=== PATIENT | male | born 1960 | race Caucasian/White ===

== ENCOUNTER 2021-10-22 23:09 | Inpatient (IN) | payer BC, OTHER, SELFPAY ==
--- NOTE | ~2021-10-22 | XR_ITS ---
XR chest 2V DATE: 10/22/2021 23:50 INDICATION: Chest pain TECHNIQUE: PA and lateral views COMPARISON: None FINDINGS: Mild cardiomegaly. No pulmonary infiltrate or consolidation, pleural effusion or pulmonary vascular congestion or pneumothorax is detected. Degenerative spurring of the thoracic spine. IMPRESSION: Mild cardiomegaly No active pulmonary disease Reviewed, dictated and finalized at location A.
--- NOTE | ~2021-10-22 | US_ITS ---
EXAMINATION: US art doppler w press LE BI DATE: 10/26/2021 09:51 INDICATION: Peripheral vascular disease TECHNIQUE: Segmental pressures and plethysmographic and Doppler waveforms of the brachial and lower e xtremity arteries were obtained. COMPARISON: None. FINDINGS: Right and left brachial artery pressures of 144 mm Hg and 132 mm Hg, respectively, are concordant (no rmal difference <= 30 mmHg). The right and left high-thigh pressure indices as well as pressures at t he above and [id number] popliteal arteries unable to be obtained due to patient body habitus. The right ankle-brachial index (YANA) is 1.22 (normal >= 0.9-1). The right great toe-brachial index (T BI) is 1.10 (normal >= 0.6-0.8). Arterial waveforms are triphasic at the right common femoral artery and biphasic at the more distal arteries in the right lower limb with brisk systolic upstrokes throug hout. The left YANA is 1.15. The left TBI is 1.10. Arterial waveforms are biphasic with brisk systolic upstr okes throughout the arteries of the left lower limb. IMPRESSION: 1. Normal YANA's and TBI's bilaterally. No significant arterial occlusive disease. Reviewed, dictated and finalized at location A. IMPRESSION: 1. Normal YANA's and TBI's bilaterally. No significant arterial occlusive diseas e.
--- NOTE | 2021-10-22 23:13 | ECG_ITS ---
Measurements Intervals [place] Rate: 75 P: 66 TN: 206 QRS: 43 QRSD: 106 T: 3 QT: 373 QTc: 419 Interpretive Statements SINUS RHYTHM WITH FIRST DEGREE AV BLOCK DELAYED PRECORDIAL R/S TRANSITION BORDERLINE ST-T WAVE ABNORMALITY- INFERIOR LEADS BASELINE ARTIFACT- II, III, AVF BORDERLINE ECG Electronically Signed On 10-23-2021 6:22:36 CDT by Geovani Lozada D.O.
--- NOTE | 2021-10-22 23:24 | ED.CHESTPAIN ---
HPI - Chest Pain General Chief Complaint: Chest Pain Stated Complaint: extreme chest pains Time Seen by Provider: 10/22/21 23:14 History of Present Illness HPI narrative: 61-year-old male with history of diabetes, hypertension high cholesterol presenting to the emergency department for evaluation of intense left-sided chest pain that occurred at approximately 1030. Patient states while he was at rest he had an intense left-sided chest pain that did radiate up into his jaw. Patient states he did feel flushed with his pain. Patient states since the pain began it has begun to improve. Patient states currently the tightness is down to a 3. Patient reports he has had no prior history of AL but did have a stress test approximately 10 years ago. Related Data Allergies Allergy/AdvReac Type Severity Reaction Status Date / Time poison geovani extract Allergy Severe Rash Verified 10/23/21 03:11 poison oak extract Allergy Severe Rash Verified 10/23/21 03:11 poison sumac extract Allergy Severe Rash Verified 10/23/21 03:11 tetracycline AdvReac Nausea and Verified 10/23/21 03:11 Vomiting NKDA Allergy Mild Unknown Uncoded 10/22/21 23:09 Review of Systems Review of Systems: CONSTITUTIONAL: Denies fever, chills, or sweats. EYES: Denies visual changes, redness, or discharge. ENT: Denies rhinorrhea, congestion, sore throat, or otalgia. CARDIOVASCULAR: See HPI RESPIRATORY: Denies cough or dyspnea. GASTROINTESTINAL: Denies abdominal pain, nausea, vomiting, or diarrhea. GENITOURINARY: Denies dysuria or hematuria. SKIN: Denies rash or itching. MUSCULOSKELETAL: Denies back pain, joint pain, or myalgia. NEUROLOGIC: Denies headache, numbness, or weakness. Exam Narrative: APPEARANCE: Well appearing, no pain, no distress, well-nourished. HEAD: normocephalic, atraumatic. EYES: PERRLA/EOMI, conjunctivae clear. NOSE: Normal no drainage NECK: Supple. No adenopathy, no masses. RESPIRATORY: Airway patent, respirations nonlabored. Clear to auscultation bilaterally, no rales, rhonchi, wheezing. CARDIOVASCULAR: Regular rate and rhythm without murmurs rubs or gallops. No reproducible chest wall tenderness to palpation. ABDOMINAL: Soft, nontender, nondistended, normal bowel sounds MUSCULOSKELETAL: Moves all extremities. Strength/ROM intact, No edema, No calf tenderness. NEURO: Alert. Cranial nerves II through XII intact. Grossly intact SKIN: Warm, dry. Normal Color Course Course Emergency Course: Patient's initial troponin was elevated at 0.044. EKG showed no evidence of acute STEMI. Case was discussed with cardiology, Dr. Swenson. Patient was treated with 1 dose of Lovenox. Case was discussed with the hospitalist and patient was admitted to IMU for concern for NSTEMI. Patient's repeat troponin was below detectable limits. Vital Signs Vital signs: Vital Signs Pulse Rate 67 10/22/21 23:25 Respiratory Rate 14 10/22/21 23:25 Blood Pressure 184/97 H 10/22/21 23:25 Pulse Oximetry 99 10/22/21 23:25 Pulse Rate 67 10/23/21 02:51 Respiratory Rate 16 10/23/21 02:51 Blood Pressure 132/62 10/23/21 02:51 Pulse Oximetry 97 10/23/21 02:51 MDM - Chest Pain Lab Data Attestation: I reviewed the patient's lab results. Result diagrams: 10/22/21 23:37 10/22/21 23:37 Labs: Lab Results 10/22/21 10/22/21 10/22/21 Range/Units 23:37 23:37 23:37 WBC 8.7 (4.5-10.0) K/mm3 RBC 5.43 (4.6-6.20) M/mm3 Hgb 15.5 (14.0-18.0) g/dL Hct 47.0 (42.0-52.0) % MCV 86.6 (80-100) fl MCH 28.5 (26-34) pg MCHC 33.0 (32-36) g/dl RDW 13.4 (11.5-14.5) % Plt Count 266 (150-375) k/mm3 MPV 8.8 (7.4-10.4) fl Immature Gran % (Auto) 0.3 (0-0.5) % Neut % (Auto) 36.9 L (45.5-73.1) % Lymph % (Auto) 50.6 H (18.3-44.2) % [place] % (Auto) 10.7 H (2.6-8.5) % Eos % (Auto) 1.2 (0-4.4) % Baso % (Auto) 0.3 (0.2-1.2) % Lymph # (Auto) 4.40 H (0.9-3.2) K/mm
[2021-10-22 23:25] VITALS: BP 184/97; PULSE 67; RESP 14; O2SAT 99
[2021-10-22 23:45] LABS: Basophils Percent Auto 0.3 % (0.2-1.2); Eosinophils Absolute Auto 0.1 K/mm3 (0-0.3); Eosinophils Percent Auto 1.2 % (0-4.4); Hemoglobin 15.5 g/dL (14.0-18.0); Immature Granulocyte Absolute 0.03 K/mm3 (0.00-0.031); Immature Granulocyte Percent A 0.3 % (0-0.5); Lymphocytes Percent Auto 50.6 % (18.3-44.2); Mean Corpuscular Hemoglobin 28.5 pg (26-34); Mean Corpuscular Volume 86.6 fl (80-100); Mean Platelet Volume 8.8 fl (7.4-10.4); Monocytes Absolute Auto 0.9 K/mm3 (0.1-0.6); Monocytes Percent Auto 10.7 % (2.6-8.5); Neutrophils Absolute Auto 3.2 K/mm3 (1.3-6.7); Neutrophils Percent Auto 36.9 % (45.5-73.1); Platelet Count Result 266 k/mm3 (150-375); Red Blood Count 5.43 M/mm3 (4.6-6.20); Red Cell Distribution Width 13.4 % (11.5-14.5); White Blood Count 8.7 K/mm3 (4.5-10.0)
[2021-10-22 23:56] LABS: Alanine Aminotransferase 31 U/L (6-50); Albumin Level 4.9 g/dL (3.5-5.1); Alkaline Phosphatase 86 U/L (38-126); Anion Gap 7 mmol/L (8-16); Aspartate Amino Transferase 31 U/L (17-59); Bilirubin,Total 0.3 mg/dL (0.2-1.3); Blood Urea Nitrogen 22 mg/dL (9-20); Calcium 9.3 mg/dL (8.4-10.2); Carbon Dioxide 28 mmol/L (22-30); Chloride 102 mmol/L (98-107); Estimated CRCL calculation 103 ml/min; Estimated Glomerular Filt Rate > 60; Glucose 138 mg/dL (65-110); Lipase 84 U/L (23-300); Potassium 3.8 mmol/L (3.4-5.0); Sodium 137 mmol/L (137-145)
[2021-10-22 23:59] LABS: INR 1.1; Prothrombin Time 13.7 Seconds (11.1-14.7)
[2021-10-23] VITALS (31 sets, daily range): BP systolic 112–151; BP diastolic 52–80; PULSE 48–84; RESP 9–20; TEMP 36.3–37.1; O2SAT 96–100; BMI 42.5
[2021-10-23] LABS: Partial Thromboplastin Time 30.1 SECONDS (22.3-36.8)
[2021-10-23] MEDS: NITROGLYCERIN SL 0.4 MG TABLET SUBLINGUAL (00:31)
[2021-10-23 00:32] LABS: Troponin I 0.044 ng/mL (0.000-0.034)
--- NOTE | 2021-10-23 00:36 | PC.NURSE ---
This RN about to administer 2nd dose nitro. Pts HR dropped to low 40s, pt alert and awake with c/o lightheadedness. Nitro held, EDP at bedside. Episode lasted approx 1 min. HR now in 60s
--- NOTE | 2021-10-23 01:08 | PM.IMHP ---
H&P: HPI History of Present Illness Date/Time: 10/23/21 01:08 Chief Complaint: Chest pain Narrative: This is a 61-year-old male with past medical history significant for hypertension, morbid obesity, patient presented by private yesenia sandoval to the emergency room after he had sudden onset of precordial chest pain with radiation bilaterally to shoulders and to the back pain lasted for roughly whole day on and off he had some lightheadedness with it no diaphoresis, no near syncope or syncope no cough, no cough no palpitations, no nausea, no vomiting, no abdominal pain, no diarrhea, no fevers, no rigors, no chills. Patient has been in his usual state of health up until this moment this happened while he was resting sitting down watching TV patient rates his pain to 1/10 in intensity at the time of my visit. Preliminary workup was significant for slight elevation troponin. Patient has been admitted for further evaluation management and treatment. Review of Systems Review of Systems: Chest pain Constitutional: Constitutional: Denies chills, Denies fatigue, Denies fever(s), Denies malaise and Denies night sweats Eyes: Eyes: Denies change in vision ENT: Denies dysphagia, Denies vertigo, Reports dizziness and Denies odynophagia Cardiovascular: Cardiovascular: Reports chest pain at rest, Denies pedal edema, Denies irregular heart rhythm, Denies leg edema, Reports palpitations and Reports dyspnea Respiratory: Respiratory: Denies chest congestion, Denies cough and Denies excessive phlegm production Gastrointestinal: Gastrointestinal: Denies abdominal pain, Denies dyspepsia, Denies heartburn, Denies diarrhea, Denies nausea and Denies vomiting Genitourinary: Genitourinary: Denies dysuria Musculoskeletal: Musculoskeletal: Denies back pain and Denies arthralgias Integumentary/Breasts: Skin/Breast: Denies rash Neurologic: Denies focal weakness and Denies Sensory deficit (Neuro) Psychiatric: Psychiatric: Reports no additional psychiatric complaints and Reports as per HPI Endocrine: Endocrine: Denies cold intolerance, Denies fatigue, Denies flushing, Denies heat intolerance, Denies polyphagia, Denies polydipsia and Denies palpitations Hematologic/Lymphatic: Hematologic/Lymphatic: Reports no additional hematologic/lymphatic complaints and Reports as per HPI Allergic/Immunologic: Allergic/Immunologic: Reports no additional allergic/immunologic complaints and Reports as per HPI [facility] Family History Family History (Updated 10/23/21 @ 03:12 by Sara Monzon RN) Sibling History of blood clots Colon cancer Grandparent Cerebrovascular accident Father Colon cancer Hypertension Mother Congestive heart failure Social History Social History Smoking status: Never smoker Second hand tobacco smoke exposure: Yes Drinks per week: 2 Substance use: never Spiritual care concerns: Yes (Hindu) Meds Home Medications and Allergies Home Medications Medication Instructions Recorded Confirmed Type Tumeric 1 cap PO DAILY 10/23/21 10/23/21 History acetaminophen 500 mg tablet 1,000 mg PO BID PRN Pain 10/23/21 10/23/21 History ascorbic acid (vitamin C) 250 mg 250 mg PO DAILY 10/23/21 10/23/21 History tablet aspirin 81 mg tablet,delayed 81 mg PO HS 10/23/21 10/23/21 History release cholecalciferol (vitamin D3) 25 25 mcg PO DAILY 10/23/21 10/23/21 History mcg (1,000 unit) tablet (Vitamin D3) coenzyme Q10 200 mg capsule (Co 200 mg PO BID 10/23/21 10/23/21 History Q-10) flaxseed oil 1,000 mg capsule 1,000 mg PO DAILY 10/23/21 10/23/21 History fluticasone propionate 50 1 spray intranasal HS 10/23/21 10/23/21 History mcg/actuation nasal spray,suspension (Flonase Allergy Relief) hydrochlorothiazide 25 mg tablet 25 mg PO DAILY 10/23/21 10/23/21 History krill oil 1,000 mg-om3 130 mg-dha 1 cap PO HS 10/23/21 10/23/21 History 40 mg-epa 80 [id number]-fel-astax cap (Krill Oil ([address])) lisinop
[2021-10-23] MEDS: MORPHINE SULFATE (*CRX) 4 MG/ML INJ IV PUSH (01:25)
[2021-10-23] MEDS: ENOXAPARIN 30 MG/0.3 ML SYRINGE SUB-Q ×2 (01:26→17:21)
[2021-10-23] MEDS: ENOXAPARIN 100 MG/ML SYRINGE SUB-Q ×2 (01:26→17:21)
[2021-10-23 02:01] LABS: SARS-CoV-2 RNA PCR Negative
[2021-10-23 03:04] LABS: Troponin I < 0.012 ng/mL (0.000-0.034)
[2021-10-23] MEDS: ACETAMINOPHEN 500 MG TABLET 1000 MG PO (04:30)
--- NOTE | 2021-10-23 04:43 | PC.NURSE ---
This patient, Quoc Galvez, was admitted to IMU Room 201-01. Patient/family oriented to hospital policies and general routines including ID bracelet, bed and alarms, visiting hours, pain management, procedures, bathroom and other care routines, personal items, smoking policy, room service/diet, and visiting hours. Patient/Family are encouraged to report perceived risks to care and to ask questions if they do not understand what they are told or what they should do.
[2021-10-23 06:05] LABS: Troponin I < 0.012 ng/mL (0.000-0.034)
[2021-10-23] MEDS: CHOLECALCIFEROL 1,000 UNITS TABLET 1000 UNITS PO (08:05)
[2021-10-23] MEDS: VITAMIN E 400 UNIT CAPSULE PO (08:05)
[2021-10-23] MEDS: hydroCHLOROthiazide 25 MG TABLET PO (08:05)
[2021-10-23] MEDS: carvediloL 6.25 MG TABLET PO ×2 (08:05→21:38)
[2021-10-23] MEDS: ASPIRIN 81 MG ENTERIC TABLET PO ×2 (08:05→21:38)
[2021-10-23] MEDS: ASCORBIC ACID 250 MG TABLET PO (08:06)
--- NOTE | 2021-10-23 10:04 | PCCCNOTE ---
On 10/23/21, the student, [Shira Hagan], provided care and completed [facility] documentation on this patient. I have reviewed the student's documentation and agree with the findings.
--- NOTE | 2021-10-23 10:39 | PM.IMPN ---
Progress Note: A&P Assessment and Plan (1) Acute non-ST elevation myocardial infarction (NSTEMI): Code(s): I21.4 - Non-ST elevation (NSTEMI) myocardial infarction Status: Acute Assessment and Plan: Admit to IMU Received Lovenox therapeutic dose in emergency room Cardiology consult Continue to trend troponin No EKG changes (2) Morbid obesity with BMI of 40.0-44.9, adult: Code(s): E66.01 - Morbid (severe) obesity due to excess calories; Z68.41 - Body mass index [BMI] 40.0-44.9, adult Status: Acute Assessment and Plan: Lifestyle and diet modifications (3) Hypertension: Code(s): I10 - Essential (primary) hypertension Status: Acute Assessment and Plan: Continue home meds Continue to monitor Plan # chest pain typical and atypical features. No prior history of coronary artery disease in the past. Stress test 10 years back was normal. EKG with ST-T changes in inferior leads 2 3 AVF otherwise no acute ischemic changes noted. No prior EKG to compare Initial troponin 0.044 however subsequent levels are negative. Lipase is normal His started on Lovenox, 1 dose given aspirin 325 mg given. In Continue on aspirin 81 mg daily Coreg and lisinopril. Continue rosuvastatin. Check lipid profile Check echo will get D-dimer. Cardiology been consulted from the ER will await their recommendations. Currently NPO. If no plans will let him eat # non ST-elevation [place] the initial troponin was mildly elevated at 0.044 the subsequent levels are normal # Morbid obesity # Hypertension # Type 2 diabetes on metformin at home. Place on SSI here check A1c # Hyperlipidemia check lipid profile. Continue rosuvastatin # EVELYNE on CPAP # DVT prophylaxis Lovenox # Code status full code Subjective Date/time seen: 10/23/21 10:39 Interval history: HPI:This is a 61-year-old male with past medical history significant for hypertension, morbid obesity, patient presented by private a lori to the emergency room after he had sudden onset of precordial chest pain with radiation bilaterally to shoulders and to the back pain lasted for roughly whole day on and off he had some lightheadedness with it no diaphoresis, no near syncope or syncope no cough, no cough no palpitations, no nausea, no vomiting, no abdominal pain, no diarrhea, no fevers, no rigors, no chills.? Patient has been in his usual state of health up until this moment this happened while he was resting sitting down watching TV patient rates his pain to 1/10 in intensity at the time of my visit.? Preliminary workup was significant for slight elevation troponin.? Patient has been admitted for further evaluation management and treatment. 10/23/2021 chart reviewed. Patient seen and examined. No further chest pain. No shortness of breath or cough. Review of Systems Review of Systems: All systems reviewed & are unremarkable except as noted in HPI and below Exam Narrative: GENERAL: The patient is well developed, not in acute distress HEENT: Nonicteric sclerae, PERRLA, EOMI. Oropharynx clear. Moist mucous membranes. Conjunctivae appear well perfused. CHEST: Chest wall is nontender. HEART: Regular rate and rhythm without murmur, rubs, or gallops LUNGS: Clear to auscultation bilaterally. no respiratory distress ABDOMEN: Soft, positive bowel sounds, non-tender, no organomegaly. SKIN: No rash, no excessive bruising, petechiae, or purpura. NEUROLOGIC: Cranial nerves II-XII intact, alert and oriented x 3, no gross motor deficits EXTREMITIES: no edema, cyanosis or clubbing Objective Data Vital Signs Vital Signs: Vital Signs - 24 hr 10/22/21 23:25 10/23/21 00:31 10/23/21 00:38 Temperature Pulse Rate 67 69 48 L Respiratory Rate 14 17 12 Blood Pressure 184/97 H 139/78 Pulse Oximetry 99 99 97 Oxygen Delivery 10/23/21 00:40 10/23/21 00:59 10/23/21 01:33 Temperature Pulse Rate 64 61 Respiratory Rate 12 14 Blood Pressure 121/63 112/52 L 1
[2021-10-23 11:09] LABS: Cholesterol 106 mg/dL (0-200); HDL Direct 32 mg/dL; Triglycerides 202 mg/dL (<150)
[2021-10-23 11:12] LABS: Hemoglobin A1C 6.9 % (<5.7)
[2021-10-23 11:20] LABS: LDL Cholesterol Direct 40 mg/dL
--- NOTE | 2021-10-23 12:40 | PM.CNCAR ---
Assessment and Plan Assessment and plan (1) Acute non-ST elevation myocardial infarction (NSTEMI): Code(s): I21.4 - Non-ST elevation (NSTEMI) myocardial infarction Status: Acute Assessment and Plan: Assessment NSTEMI HTN controlled Plan Heparin infusion or LMWH ASA Statin B-devonte [facility] on Sunday TTE History of Present Illness History of Present Illness Consult date/time: 10/23/21 12:40 chest pain Reason For Visit: NSTEMI Narrative: Patient presented with acute chest pain, left side, pressure like lasted for 45 min, radiates to jaw associated with sweating. Pain is not recurrent and no prior similar episodes. No precipitating or relieving factors. Review of Systems Review of Systems: All systems reviewed & are unremarkable except as noted in HPI and below PMFSH Family History Family History (Updated 10/23/21 @ 03:12 by Sara Monzon RN) Sibling History of blood clots Colon cancer Grandparent Cerebrovascular accident Father Colon cancer Hypertension Mother Congestive heart failure Social History Social History Smoking status: Never smoker Second hand tobacco smoke exposure: Yes Drinks per week: 2 Substance use: never Spiritual care concerns: Yes (Orthodox) Meds Home Medications and Allergies Home Medications Medication Instructions Recorded Confirmed Type Tumeric 1 cap PO DAILY 10/23/21 10/23/21 History acetaminophen 500 mg tablet 1,000 mg PO BID PRN Pain 10/23/21 10/23/21 History ascorbic acid (vitamin C) 250 mg 250 mg PO DAILY 10/23/21 10/23/21 History tablet aspirin 81 mg tablet,delayed 81 mg PO HS 10/23/21 10/23/21 History release cholecalciferol (vitamin D3) 25 25 mcg PO DAILY 10/23/21 10/23/21 History mcg (1,000 unit) tablet (Vitamin D3) coenzyme Q10 200 mg capsule (Co 200 mg PO BID 10/23/21 10/23/21 History Q-10) flaxseed oil 1,000 mg capsule 1,000 mg PO DAILY 10/23/21 10/23/21 History fluticasone propionate 50 1 spray intranasal HS 10/23/21 10/23/21 History mcg/actuation nasal spray,suspension (Flonase Allergy Relief) hydrochlorothiazide 25 mg tablet 25 mg PO DAILY 10/23/21 10/23/21 History krill oil 1,000 mg-om3 130 mg-dha 1 cap PO HS 10/23/21 10/23/21 History 40 mg-epa 80 ct-ht6-hoh-astax cap (Krill Oil ([place] [address] and 6)) lisinopril 10 mg tablet 10 mg PO HS 10/23/21 10/23/21 History loratadine 10 mg tablet 10 mg PO HS 10/23/21 10/23/21 History metformin 500 mg tablet 500 mg PO HS 10/23/21 10/23/21 History hnfepxwn-wne-mqsvr 120 mcg-lutein 1 tablet PO QACLUNCH 10/23/21 10/23/21 History 150 mcg-herb 50 mg chewable tablet (Alive Men's 50 Plus Multivitamin) naproxen 250 mg tablet 250 mg PO BID PRN Pain 10/23/21 10/23/21 History rosuvastatin 40 mg tablet 40 mg PO HS 10/23/21 10/23/21 History vitamin A 2,400 mcg capsule 2,400 mcg PO DAILY 10/23/21 10/23/21 History vitamin E 600 unit capsule 600 unit PO DAILY 10/23/21 10/23/21 History Allergies Allergy/AdvReac Type Severity Reaction Status Date / Time poison geovani extract Allergy Severe Rash Verified 10/23/21 03:11 poison oak extract Allergy Severe Rash Verified 10/23/21 03:11 poison sumac extract Allergy Severe Rash Verified 10/23/21 03:11 No Known Drug Allergies Allergy Verified 10/23/21 10:50 tetracycline AdvReac Nausea and Verified 10/23/21 03:11 Vomiting Vital Signs Vital Signs - 24 hr 10/22/21 23:25 10/23/21 00:31 10/23/21 00:38 Temperature Pulse Rate 67 69 48 L Respiratory Rate 14 17 12 Blood Pressure 184/97 H 139/78 Pulse Oximetry 99 99 97 Oxygen Delivery 10/23/21 00:40 10/23/21 00:59 10/23/21 01:33 Temperature Pulse Rate 64 61 Respiratory Rate 12 14 Blood Pressure 121/63 112/52 L 129/68 Pulse Oximetry 98 100 Oxygen Delivery 10/23/21 01:06 10/23/21 01:15 10/23/21 01:16 Temperature Pulse Rate 60 66 59 L Respiratory Rate 9 L 14 9 L Blood Pressure 117/65 Pulse Oximetry 98 100 100 Oxyg
[2021-10-23 13:07] LABS: D Dimer < 0.27 ug/mL (<0.48)
[2021-10-23 19:08] LABS: Glucose Point of Care 150 mg/dl (65-105)
[2021-10-23 20:55] LABS: Glucose Point of Care 206 mg/dl (65-105)
[2021-10-23] MEDS: FLUTICASONE PROPIONATE 0.05% NA SPR 16 GM BTL (*BKC) 1 SPRAY NASAL (21:38)
[2021-10-23] MEDS: lisinopriL 10 MG TABLET PO (21:38)
[2021-10-23] MEDS: LORATADINE 10 MG TABLET PO (21:38)
[2021-10-23] MEDS: OMEGA 3 POLYUNSAT FATTY ACIDS 1 GM CAP PO (21:38)
[2021-10-23] MEDS: ROSUVASTATIN 10 MG TABLET 40 MG PO (21:39)
[2021-10-24] VITALS (19 sets, daily range): BP systolic 125–145; BP diastolic 60–74; PULSE 51–106; RESP 16–20; TEMP 36.2–36.8; O2SAT 96–99
--- NOTE | 2021-10-24 | ECHO_ITS ---
Patient Info Name: Quoc Galvez Age: 61 years : 1960 Gender: Male Ht: 70 in Wt: 296 lbs BSA: 2.64 m2 HR: 52 bpm BP: 126 / 63 mmHg Exam Date: 10/24/2021 8:41 AM Exam Location: [facility] Patient Status: Inpatient Admit Date: 10/23/2021 Staff Ordering Physician: Steve Johnston MD Director Of Career Resources: Luciano Millard, TERELL, RT Attending Provider: Steve Johnston MD Exam Type: CA echo doppler color flow Study Info Indications R07.9 - Chest pain, unspecified Complete two-dimensional, color flow and Doppler transthoracic echocardiogram is performed. Strain analysis performed. Summary 1. Complete two-dimensional, color flow and Doppler transthoracic echocardiogram is performed. 2. Left ventricular chamber dimension is normal. 3. Left ventricular systolic function is normal, estimated at 65-70%. 4. There is no increased left ventricular wall thickness. 5. The left ventricular diastolic function is normal. 6. Right ventricular chamber dimension is normal. 7. Right ventricular systolic function is normal. 8. Left atrial chamber dimension is normal. 9. Right atrial chamber dimension is normal. Left Ventricle Left ventricular chamber dimension is normal. Left ventricular systolic function is normal, estimated at 65-70%. There is no increased left ventricular wall thickness. Left ventricular septal wall motion is normal. The left ventricular diastolic function is normal. Right Ventricle Right ventricular chamber dimension is normal. Right ventricular systolic function is normal. Left Atria Left atrial chamber dimension is normal. Right Atria Right atrial chamber dimension is normal. Aortic Valve The aortic valve is trileaflet. There is no aortic valve sclerosis. There is no aortic valve stenosis. There is no aortic valve regurgitation. Pulmonic Valve Pulmonary valve is not well visualized. Mitral Valve The mitral valve has normal leaflets. There is no mitral valve stenosis. There is no mitral valve regurgitation. Tricuspid Valve The tricuspid valve leaflets are normal. There is no significant tricuspid valve stenosis. There is no tricuspid valve regurgitation. Pericardium/Pleural The pericardium appears normal. There is no pericardial effusion. Aorta The aortic root size at the sinus of Valsalva is normal. The prox ascending aorta size is normal. Left Ventricular Outflow Tract Name Value Normal LVOT 2D LVOT Diameter 2.1 cm LVOT Doppler LVOT Peak Gradient 3 mmHg LVOT Mean Gradient 2 mmHg LVOT VTI 21 cm LVOT VTI/AV VTI Ratio 0.8 LVOT Stroke Volume 72 ml LVOT CO 3.4 l/min LVOT CI 1.3 l/min/m2 Mitral Valve Name Value Normal MV Doppler
--- NOTE | 2021-10-24 | ECHO_ITS ---
Patient Info Name: Quoc Galvez Age: 61 years : 1960 Gender: Male Ht: 70 in Wt: 296 lbs BSA: 2.64 m2 HR: 52 bpm BP: 126 / 63 mmHg Exam Date: 10/24/2021 8:41 AM Exam Location: [facility] Patient Status: Inpatient Admit Date: 10/23/2021 Staff Ordering Physician: Steve Johnston MD Material Inspector: Luciano Millard, TERELL, RT Attending Provider: Steve Johnston MD Exam Type: CA echo doppler color flow Study Info Indications R07.9 - Chest pain, unspecified Complete two-dimensional, color flow and Doppler transthoracic echocardiogram is performed. Strain analysis performed. Summary 1. Complete two-dimensional, color flow and Doppler transthoracic echocardiogram is performed. 2. Left ventricular chamber dimension is normal. 3. Left ventricular systolic function is normal, estimated at 65-70%. 4. There is no increased left ventricular wall thickness. 5. The left ventricular diastolic function is normal. 6. Right ventricular chamber dimension is normal. 7. Right ventricular systolic function is normal. 8. Left atrial chamber dimension is normal. 9. Right atrial chamber dimension is normal. Left Ventricle Left ventricular chamber dimension is normal. Left ventricular systolic function is normal, estimated at 65-70%. There is no increased left ventricular wall thickness. Left ventricular septal wall motion is normal. The left ventricular diastolic function is normal. Right Ventricle Right ventricular chamber dimension is normal. Right ventricular systolic function is normal. Left Atria Left atrial chamber dimension is normal. Right Atria Right atrial chamber dimension is normal. Aortic Valve The aortic valve is trileaflet. There is no aortic valve sclerosis. There is no aortic valve stenosis. There is no aortic valve regurgitation. Pulmonic Valve Pulmonary valve is not well visualized. Mitral Valve The mitral valve has normal leaflets. There is no mitral valve stenosis. There is no mitral valve regurgitation. Tricuspid Valve The tricuspid valve leaflets are normal. There is no significant tricuspid valve stenosis. There is no tricuspid valve regurgitation. Pericardium/Pleural The pericardium appears normal. There is no pericardial effusion. Aorta The aortic root size at the sinus of Valsalva is normal. The prox ascending aorta size is normal. Left Ventricular Outflow Tract Name Value Normal LVOT 2D LVOT Diameter 2.1 cm LVOT Doppler LVOT Peak Gradient 3 mmHg LVOT Mean Gradient 2 mmHg LVOT VTI 21 cm LVOT VTI/AV VTI Ratio 0.8 LVOT Stroke Volume 72 ml LVOT CO 3.4 l/min LVOT CI 1.3 l/min/m2 Mitral Valve Name Value Normal MV Doppler
[2021-10-24] MEDS: ENOXAPARIN 30 MG/0.3 ML SYRINGE SUB-Q ×2 (05:45→16:26)
[2021-10-24] MEDS: ENOXAPARIN 100 MG/ML SYRINGE SUB-Q ×2 (05:45→16:26)
[2021-10-24] MEDS: ACETAMINOPHEN 500 MG TABLET 1000 MG PO ×3 (05:50→21:12)
[2021-10-24 08:24] LABS: Glucose Point of Care 174 mg/dl (65-105)
[2021-10-24] MEDS: CHOLECALCIFEROL 1,000 UNITS TABLET 1000 UNITS PO (09:07)
[2021-10-24] MEDS: carvediloL 6.25 MG TABLET PO ×2 (09:07→21:11)
[2021-10-24] MEDS: VITAMIN E 400 UNIT CAPSULE PO (09:07)
[2021-10-24] MEDS: ASPIRIN 81 MG ENTERIC TABLET PO ×2 (09:07→21:12)
[2021-10-24] MEDS: hydroCHLOROthiazide 25 MG TABLET PO (09:08)
[2021-10-24] MEDS: ASCORBIC ACID 250 MG TABLET PO (09:08)
[2021-10-24 12:35] LABS: Glucose Point of Care 204 mg/dl (65-105)
[2021-10-24] MEDS: INSULIN ASPART (*BKC) 100 UNITS/ML SUB-Q (12:38)
[2021-10-24] MEDS: MULTIVITAMINS /C LUTEIN (CENTRUM SILVER) TABLET *BKC 1 TAB PO (12:39)
--- NOTE | 2021-10-24 12:49 | PM.IMPN ---
Progress Note: A&P Assessment and Plan (1) Acute non-ST elevation myocardial infarction (NSTEMI): Code(s): I21.4 - Non-ST elevation (NSTEMI) myocardial infarction Status: Acute (2) Morbid obesity with BMI of 40.0-44.9, adult: Code(s): E66.01 - Morbid (severe) obesity due to excess calories; Z68.41 - Body mass index [BMI] 40.0-44.9, adult Status: Acute (3) Hypertension: Code(s): I10 - Essential (primary) hypertension Status: Acute Plan # chest pain typical and atypical features. No prior history of coronary artery disease in the past. Stress test 10 years back was normal. EKG with ST-T changes in inferior leads 2 3 AVF otherwise no acute ischemic changes noted. No prior EKG to compare Initial troponin 0.044 however subsequent levels are negative. Lipase is normal His started on Lovenox, 1 dose given aspirin 325 mg given. In Continue on aspirin 81 mg daily Coreg and lisinopril. Continue rosuvastatin. Check lipid profile Echo done which is pending. D-dimer came back negative. Cardiology consulted and plan for cardiac catheterization in the morning # non ST-elevation [place] the initial troponin was mildly elevated at 0.044 the subsequent levels are normal # Morbid obesity # Hypertension # Type 2 diabetes on metformin at home. Place on SSI here A1c at 6.9 # Hyperlipidemia lipid profile with LDL 40. Continue rosuvastatin # EVELYNE on CPAP # DVT prophylaxis Lovenox # Code status full code Subjective Date/time seen: 10/24/21 12:49 Interval history: HPI:This is a 61-year-old male with past medical history significant for hypertension, morbid obesity, patient presented by private a vagal to the emergency room after he had sudden onset of precordial chest pain with radiation bilaterally to shoulders and to the back pain lasted for roughly whole day on and off he had some lightheadedness with it no diaphoresis, no near syncope or syncope no cough, no cough no palpitations, no nausea, no vomiting, no abdominal pain, no diarrhea, no fevers, no rigors, no chills.? Patient has been in his usual state of health up until this moment this happened while he was resting sitting down watching TV patient rates his pain to 1/10 in intensity at the time of my visit.? Preliminary workup was significant for slight elevation troponin.? Patient has been admitted for further evaluation management and treatment. 10/23/2021 chart reviewed. Patient seen and examined. No further chest pain. No shortness of breath or cough. 10/24/2021. Intermittent chest pain short lived. No shortness of breath or cough. Any leg swelling Review of Systems Review of Systems: All systems reviewed & are unremarkable except as noted in HPI and below Exam Narrative: GENERAL: The patient is well developed, not in acute distress HEENT: Nonicteric sclerae, PERRLA, EOMI. Oropharynx clear. Moist mucous membranes. Conjunctivae appear well perfused. CHEST: Chest wall is nontender. HEART: Regular rate and rhythm without murmur, rubs, or gallops LUNGS: Clear to auscultation bilaterally. no respiratory distress ABDOMEN: Soft, positive bowel sounds, non-tender, no organomegaly. SKIN: No rash, no excessive bruising, petechiae, or purpura. NEUROLOGIC: Cranial nerves II-XII intact, alert and oriented x 3, no gross motor deficits EXTREMITIES: no edema, cyanosis or clubbing Objective Data Vital Signs Vital Signs: Vital Signs - 24 hr 10/23/21 14:00 10/23/21 16:00 10/23/21 16:00 Temperature 97.3 F L Pulse Rate 70 70 67 Respiratory Rate 18 16 Blood Pressure 139/76 Pulse Oximetry 98 98 Oxygen Delivery Room Air Fraction of Inspired Oxygen 10/23/21 16:00 10/23/21 18:00 10/23/21 20:00 Temperature 98.5 F Pulse Rate 84 68 72 Respiratory Rate 16 Blood Pressure 134/75 Pulse Oximetry 97 Oxygen Delivery Fraction of Inspired Oxygen 10/23/21 21:38 10/23/21 23:02 10/23/21 23:02 Temperature Pulse Rate 70 72 Respi
[2021-10-24 16:02] LABS: Glucose Point of Care 128 mg/dl (65-105)
--- NOTE | 2021-10-24 16:18 | PM.PNCARD ---
Progress Note: A&P Assessment and Plan (1) Acute non-ST elevation myocardial infarction (NSTEMI): Code(s): I21.4 - Non-ST elevation (NSTEMI) myocardial infarction Status: Acute Plan NSTEMI HTN Plan LMWH (hold in AM) [facility] ASA Statin B-devonte and ACEI Subjective Date/time seen: 10/24/21 16:18 no chest pain today Tele: SR Review of Systems Review of Systems: All systems reviewed & are unremarkable except as noted in HPI and below Exam Const: General: comfortable and no acute distress Other: Able to lie flat Neck: Neck: supple and no JVD Carotids: no bruits Resp: Auscultation: clear to auscultation bilaterally and lung sounds not diminished Other: No chest wall tenderness Cardio: Rate: regular rate Rhythm: regular rhythm Heart sounds: no gallops, no murmurs and no rubs GI: GI Palp: Yes Soft to palpation and No Tenderness to palpation present (GI) Auscultation: normal bowel sounds Extrem: General: no edema Other: Normal capillary refills Intact distal pulses. Objective Data Vital Signs Vital Signs: Vital Signs - 24 hr 10/23/21 18:00 10/23/21 20:00 10/23/21 21:38 Temperature 36.9 C Pulse Rate 68 72 70 Respiratory Rate 16 Blood Pressure 134/75 Pulse Oximetry 97 Oxygen Delivery Fraction of Inspired Oxygen 10/23/21 23:02 10/23/21 23:02 10/23/21 20:00 Temperature Pulse Rate 72 74 Respiratory Rate 16 Blood Pressure Pulse Oximetry 97 96 Oxygen Delivery Autopap CPAP Fraction of Inspired Oxygen 21 10/23/21 20:00 10/23/21 22:00 10/23/21 23:59 Temperature 37.1 C Pulse Rate 61 66 Respiratory Rate 20 Blood Pressure 145/67 H Pulse Oximetry 97 98 Oxygen Delivery Room Air Fraction of Inspired Oxygen 10/24/21 00:00 10/24/21 00:00 10/24/21 04:00 Temperature 36.4 C L Pulse Rate 59 L 68 Respiratory Rate 16 Blood Pressure 126/63 Pulse Oximetry 98 98 Oxygen Delivery Room Air Fraction of Inspired Oxygen 10/24/21 03:20 10/24/21 02:00 10/24/21 04:00 Temperature Pulse Rate 77 55 L 54 L Respiratory Rate 16 Blood Pressure Pulse Oximetry 96 Oxygen Delivery Autopap Fraction of Inspired Oxygen 10/24/21 04:00 10/24/21 06:00 10/24/21 08:04 Temperature Pulse Rate 53 L 72 Respiratory Rate 18 Blood Pressure Pulse Oximetry 98 97 Oxygen Delivery Room Air Autopap Fraction of Inspired Oxygen 10/24/21 08:05 10/24/21 08:00 10/24/21 08:00 Temperature 36.2 C L Pulse Rate 106 H Respiratory Rate 20 Blood Pressure 129/66 Pulse Oximetry 97 98 Oxygen Delivery CPAP Room Air Fraction of Inspired Oxygen 21 10/24/21 09:07 10/24/21 08:00 10/24/21 10:00 Temperature Pulse Rate 60 51 L 65 Respiratory Rate Blood Pressure Pulse Oximetry Oxygen Delivery Fraction of Inspired Oxygen 10/24/21 11:51 10/24/21 12:00 10/24/21 12:00 Temperature 36.8 C Pulse Rate 65 65 70 Respiratory Rate 18 18 Blood Pressure 125/66 Pulse Oximetry 97 97 Oxygen Delivery CPAP Fraction of Inspired Oxygen 21 10/24/21 14:00 10/24/21 16:00 Temperature 36.3 C L Pulse Rate 61 62 Respiratory Rate 18 Blood Pressure 133/74 Pulse Oximetry 98 Oxygen Delivery Fraction of Inspired Oxygen Intake/Output Intake/Output: Intake & Output 10/21/21 10/22/21 10/23/21 10/24/21 23:59 23:59 23:59 23:59 Intake Total 490 1190 Output Total 650 1400 Balance -160 -210 Meds/Results Medications: Active Medications Generic Name Dose Route Start Last Admin Trade Name Freq PRN Reason Stop Dose Admin Acetaminophen 1,000 mg 10/23/21 04:16 10/24/21 12:39 Acetaminophen 500 Mg Tablet PO 1,000 mg Q6H PRN Administration Mild Pain (1-3) or Fever Ascorbic Acid 250 mg 10/23/21 09:00 10/24/21 09:08 Ascorbic Acid 250 Mg Tablet PO 250 mg DAILY COLTEN Administration Aspirin 81 mg 10/23/21 21:00 10/23/21 21:38 Aspirin 81 Mg Enteric
[2021-10-24] MEDS: WATER FOR IRRIGATION, STERILE 1,000 ML BOTTLE 1000 ML (16:19)
[2021-10-24] MEDS: FLUTICASONE PROPIONATE 0.05% NA SPR 16 GM BTL (*BKC) 1 SPRAY NASAL (21:09)
[2021-10-24] MEDS: ROSUVASTATIN 10 MG TABLET 40 MG PO (21:10)
[2021-10-24] MEDS: OMEGA 3 POLYUNSAT FATTY ACIDS 1 GM CAP PO (21:11)
[2021-10-24] MEDS: lisinopriL 10 MG TABLET PO (21:12)
[2021-10-24] MEDS: LORATADINE 10 MG TABLET PO (21:12)
[2021-10-24 22:44] LABS: Glucose Point of Care 176 mg/dl (65-105)
[2021-10-25] VITALS (26 sets, daily range): BP systolic 112–152; BP diastolic 53–76; PULSE 51–73; RESP 12–18; TEMP 36.3–36.9; O2SAT 94–99
[2021-10-25 05:20] LABS: Basophils Percent Auto 0.4 % (0.2-1.2); Eosinophils Absolute Auto 0.1 K/mm3 (0-0.3); Eosinophils Percent Auto 1.4 % (0-4.4); Hematocrit 43.5 % (42.0-52.0); Hemoglobin 14.9 g/dL (14.0-18.0); Immature Granulocyte Absolute 0.06 K/mm3 (0.00-0.031); Immature Granulocyte Percent A 0.7 % (0-0.5); Lymphocytes Absolute Auto 3.82 K/mm3 (0.9-3.2); Mean Corpuscular HGB Conc 34.3 g/dl (32-36); Mean Corpuscular Hemoglobin 28.9 pg (26-34); Mean Corpuscular Volume 84.5 fl (80-100); Mean Platelet Volume 9.2 fl (7.4-10.4); Monocytes Absolute Auto 0.8 K/mm3 (0.1-0.6); Neutrophils Absolute Auto 3.3 K/mm3 (1.3-6.7); Neutrophils Percent Auto 40.5 % (45.5-73.1); Platelet Count Result 266 k/mm3 (150-375); Red Blood Count 5.15 M/mm3 (4.6-6.20); Red Cell Distribution Width 13.2 % (11.5-14.5); White Blood Count 8.1 K/mm3 (4.5-10.0)
[2021-10-25 05:33] LABS: Anion Gap 9 mmol/L (8-16); Blood Urea Nitrogen 23 mg/dL (9-20); Calcium 9.1 mg/dL (8.4-10.2); Carbon Dioxide 25 mmol/L (22-30); Chloride 100 mmol/L (98-107); Estimated CRCL calculation 104 ml/min; Estimated Glomerular Filt Rate > 60; Glucose 145 mg/dL (65-110); Magnesium 2.2 mg/dL (1.6-2.3); Potassium 3.5 mmol/L (3.4-5.0); Sodium 134 mmol/L (137-145)
[2021-10-25] MEDS: VITAMIN E 400 UNIT CAPSULE PO (08:24)
[2021-10-25] MEDS: CHOLECALCIFEROL 1,000 UNITS TABLET 1000 UNITS PO (08:24)
[2021-10-25] MEDS: ASCORBIC ACID 250 MG TABLET PO (08:24)
[2021-10-25] MEDS: hydroCHLOROthiazide 25 MG TABLET PO (08:24)
[2021-10-25] MEDS: carvediloL 6.25 MG TABLET PO ×2 (08:24→21:36)
--- NOTE | 2021-10-25 09:38 | WPDMODSED ---
Moderate Sedation Note-Pt Data Patient Data Diagnosis: Chest pain Present Complaint: No current complaints Procedure to be performed/Plan: Left heart catheterization Allergies Allergy/AdvReac Type Severity Reaction Status Date / Time poison geovani extract Allergy Severe Rash Verified 10/23/21 03:11 poison oak extract Allergy Severe Rash Verified 10/23/21 03:11 poison sumac extract Allergy Severe Rash Verified 10/23/21 03:11 No Known Drug Allergies Allergy Verified 10/23/21 10:50 tetracycline AdvReac Nausea and Verified 10/23/21 03:11 Vomiting Home Medications Medication Instructions Recorded Confirmed Type Tumeric 1 cap PO DAILY 10/23/21 10/23/21 History acetaminophen 500 mg tablet 1,000 mg PO BID PRN Pain 10/23/21 10/23/21 History ascorbic acid (vitamin C) 250 mg 250 mg PO DAILY 10/23/21 10/23/21 History tablet aspirin 81 mg tablet,delayed 81 mg PO HS 10/23/21 10/23/21 History release cholecalciferol (vitamin D3) 25 25 mcg PO DAILY 10/23/21 10/23/21 History mcg (1,000 unit) tablet (Vitamin D3) coenzyme Q10 200 mg capsule (Co 200 mg PO BID 10/23/21 10/23/21 History Q-10) flaxseed oil 1,000 mg capsule 1,000 mg PO DAILY 10/23/21 10/23/21 History fluticasone propionate 50 1 spray intranasal HS 10/23/21 10/23/21 History mcg/actuation nasal spray,suspension (Flonase Allergy Relief) hydrochlorothiazide 25 mg tablet 25 mg PO DAILY 10/23/21 10/23/21 History krill oil 1,000 mg-om3 130 mg-dha 1 cap PO 10/23/21 10/23/21 History 40 mg-epa 80 [id number]-[id number]-hjf-astax cap (Krill Oil (Fields 3 and 6)) lisinopril 10 mg tablet 10 mg PO 10/23/21 10/23/21 History loratadine 10 mg tablet 10 mg PO 10/23/21 10/23/21 History metformin 500 mg tablet 500 mg PO HS 10/23/21 10/23/21 History gqpzhxtd-jum-ejeed 120 mcg-lutein 1 tablet PO QACLUNCH 10/23/21 10/23/21 History 150 mcg-herb 50 mg chewable tablet (Alive Men's 50 Plus Multivitamin) naproxen 250 mg tablet 250 mg PO BID PRN Pain 10/23/21 10/23/21 History rosuvastatin 40 mg tablet 40 mg PO HS 10/23/21 10/23/21 History vitamin A 2,400 mcg capsule 2,400 mcg PO DAILY 10/23/21 10/23/21 History vitamin E 600 unit capsule 600 unit PO DAILY 10/23/21 10/23/21 History Current Medications: Active Medications Acetaminophen (Acetaminophen 500 Mg Tablet) 1,000 mg PO Q6H PRN PRN Reason: Mild Pain (1-3) or Fever Last Admin: 10/24/21 21:12 Dose: 1,000 mg Ascorbic Acid (Ascorbic Acid 250 Mg Tablet) 250 mg PO DAILY [facility] Last Admin: 10/25/21 08:24 Dose: 250 mg Aspirin (Aspirin 81 Mg Enteric Tablet) 81 mg PO [facility] Last Admin: 10/24/21 21:12 Dose: 81 mg Carvedilol (Carvedilol 6.25 Mg Tablet) 6.25 mg PO Q12HR [facility] Last Admin: 10/25/21 08:24 Dose: 6.25 mg Dextrose (Dextrose 50% 25 Gm/50 Ml Syringe) 12.5 gm IV PUSH PRN PRN; Protocol PRN Reason: Hypoglycemia Enoxaparin Sodium (Enoxaparin 100 Mg/Ml Syringe) 100 mg SUB-Q Q12H [facility] Last Admin: 10/25/21 05:13 Dose: Not Given Enoxaparin Sodium (Enoxaparin 30 Mg/0.3 Ml Syringe) 30 mg SUB-Q Q12H [facility] Last Admin: 10/25/21 05:13 Dose: Not Given Fish Oil (Fields 3 Polyunsat Fatty Acids 1 Gm Cap) 1 gm PO [facility] Last Admin: 10/24/21 21:11 Dose: 1 gm Fluticasone Propionate (Fluticasone Propionate 0.05% Na Spr 16 Gm Btl (*Bkc)) 1 spray NASAL [facility] Last Admin: 10/24/21 21:09 Dose: 1 spray Glucagon (Glucagon For Inj 1 Mg Vial) 1 mg IM PRN PRN; Protocol PRN Reason: Hypoglycemia Glucose (Glucose Oral Gel 15 Gm Of Glucse In 37.5 Gm Tube) 15 gm PO PRN PRN; Protocol PRN Reason: Hypoglycemia Hydrochlorothiazide (Hydrochlorothiazide 25 Mg Tablet) 25 mg PO DAILY COLTEN Last Admin: 10/25/21 08:24 Dose: 25 mg Dextrose (Dextrose 5% 1,000 Ml) 1,000 mls @ 100 mls/hr IVPB PRN PRN; Protocol PRN Reason: Hypoglycemia Insulin Aspart (Insulin Aspart (*Bkc) 100 Units/Ml) 2 - 5 units SUB-Q TIDWM COLTEN; Protocol Last Admin: 10/25/21 08:19 Dose: Not Given Lisinopril (Lisinopril 10 Mg Tablet) 10 mg
[2021-10-25 09:48] LABS: Glucose Point of Care 169 mg/dl (65-105)
--- NOTE | 2021-10-25 10:48 | WPDCARDPROC ---
Cardiac Cath Procedure Note Date of procedure:: 10/25/21 Performing physician:: Cody Healy MD Indication:: chest pain/abnormal troponin Brief clinical history:: this is a 61-year-old patient undergoing angiography after he was admitted over the weekend with an episode of chest pain that occurred as an outpatient that was associated with a minimal rise in his troponin on the 1st sample the 2nd and 3rd samples however were normal. No history of exertional angina. Procedure Procedure performed:: Left ventriculogram coronary angiogram Angio-Seal to right femoral artery Sedation/Medication given:: fentanyl 25 mg Versed 2 mg case start time 10:27 a.m. case end time 10:46 a.m. Access site:: right femoral artery Estimated blood loss:: 25 cc Procedure note:: patient was brought to the cardiac catheterization lab in the postabsorptive state where the right femoral triangle was prepared and draped in the normal fashion. Anesthesia was given with 1% lidocaine infiltrated locally. Using the modified Seldinger technique the right common femoral artery was punctured and a 5 [place] vascular sheath was then placed. After this left heart catheterization was carried out. I used a 5 [place] angled pigtail catheter to perform a left ventriculogram in the KRISHNA projection. I then used a standard 5 [place] FL4 catheter to engage and inject the left coronary artery and a 5 [place] JR4 catheter to engage and inject the right coronary artery. The cineangiograms were then reviewed and the case was terminated. An angiogram was done of the femoral artery through the sheath after which an Angio-Seal device was deployed with a good hemostatic result. The patient tolerated the procedure well there were no apparent complications. He left the cardiac catheterization lab with no evidence of groin hematoma. Findings:: Hemodynamics: Central aortic pressure is 1 20/73 left ventricle 122/3 and diastolic of 17 there is no gradient on pullback across the aortic valve. Left ventricle: The LV is normal in size all segments contract adequately the global ejection fraction is visually estimated to be 50%. There were no regional wall motion abnormalities identified. The left main coronary artery is nicely patent the left anterior descending is a moderate caliber artery extending down just around the apex. The LAD and its branches are smooth and angiographically normal in appearance circumflex is medium in caliber giving rise to the marginal branches. The circumflex system is smooth and angiographically normal in appearance the right coronary artery is large in caliber and dominant to the posterior circulation. The right coronary artery system is also smooth and angiographically normal in appearance. Conclusion:: 1. Right coronary dominant circulation with no angiographic abnormalities 2. preserved left ventricular systolic function 3. patient has atypical chest pain syndrome not mediated by myocardial ischemia based on these findings Cody Healy MD [facility]
[2021-10-25] MEDS: SODIUM CHLORIDE 0.9% IV 1,000 ML 125 ML IV CONT (11:54)
[2021-10-25 12:20] LABS: Glucose Point of Care 155 mg/dl (65-105)
[2021-10-25] MEDS: ACETAMINOPHEN 500 MG TABLET 1000 MG PO ×2 (13:34→21:37)
[2021-10-25] MEDS: MULTIVITAMINS /C LUTEIN (CENTRUM SILVER) TABLET *BKC 1 TAB PO (13:35)
[2021-10-25] MEDS: ENOXAPARIN 100 MG/ML SYRINGE SUB-Q (17:16)
[2021-10-25] MEDS: ENOXAPARIN 30 MG/0.3 ML SYRINGE SUB-Q (17:16)
--- NOTE | 2021-10-25 17:23 | PM.IMPN ---
Progress Note: A&P Assessment and Plan (1) Acute non-ST elevation myocardial infarction (NSTEMI): Code(s): I21.4 - Non-ST elevation (NSTEMI) myocardial infarction Status: Acute (2) Morbid obesity with BMI of 40.0-44.9, adult: Code(s): E66.01 - Morbid (severe) obesity due to excess calories; Z68.41 - Body mass index [BMI] 40.0-44.9, adult Status: Acute (3) Hypertension: Code(s): I10 - Essential (primary) hypertension Status: Acute Plan # chest pain typical and atypical features. No prior history of coronary artery disease in the past. Stress test 10 years back was normal. EKG with ST-T changes in inferior leads 2 3 AVF otherwise no acute ischemic changes noted. No prior EKG to compare Initial troponin 0.044 however subsequent levels are negative. Lipase is normal His started on Lovenox, 1 dose given aspirin 325 mg given. In Continue on aspirin 81 mg daily Coreg and lisinopril. Continue rosuvastatin. Check lipid profile Echo done which is pending. D-dimer came back negative. Cardiology consulted and status post cardiac catheterization 10/25/2021 which came back normal # decreased pulse right lower extremity will get arterial duplex. No rest pain currently unclear whether this is acute or chronic # non ST-elevation [place] the initial troponin was mildly elevated at 0.044 the subsequent levels are normal # Morbid obesity # Hypertension # Type 2 diabetes on metformin at home. Place on SSI here A1c at 6.9 # Hyperlipidemia lipid profile with LDL 40. Continue rosuvastatin # EVELYNE on CPAP # DVT prophylaxis Lovenox # Code status full code Subjective Date/time seen: 10/25/21 17:23 Interval history: HPI:This is a 61-year-old male with past medical history significant for hypertension, morbid obesity, patient presented by private a vagal to the emergency room after he had sudden onset of precordial chest pain with radiation bilaterally to shoulders and to the back pain lasted for roughly whole day on and off he had some lightheadedness with it no diaphoresis, no near syncope or syncope no cough, no cough no palpitations, no nausea, no vomiting, no abdominal pain, no diarrhea, no fevers, no rigors, no chills.? Patient has been in his usual state of health up until this moment this happened while he was resting sitting down watching TV patient rates his pain to 1/10 in intensity at the time of my visit.? Preliminary workup was significant for slight elevation troponin.? Patient has been admitted for further evaluation management and treatment. 10/23/2021 chart reviewed. Patient seen and examined. No further chest pain. No shortness of breath or cough. 10/24/2021. Intermittent chest pain short lived. No shortness of breath or cough. Any leg swelling 10/25/2021 underwent cardiac catheterization this morning. which came back normal. He had decreased pulse on right leg post catheterization. Catheterization was done through right groin. Denies any pain in his right leg no shortness of breath or chest pain Review of Systems Review of Systems: All systems reviewed & are unremarkable except as noted in HPI and below Exam Narrative: GENERAL: The patient is well developed, not in acute distress HEENT: Nonicteric sclerae, PERRLA, EOMI. Oropharynx clear. Moist mucous membranes. Conjunctivae appear well perfused. CHEST: Chest wall is nontender. HEART: Regular rate and rhythm without murmur, rubs, or gallops LUNGS: Clear to auscultation bilaterally. no respiratory distress ABDOMEN: Soft, positive bowel sounds, non-tender, no organomegaly. SKIN: No rash, no excessive bruising, petechiae, or purpura. NEUROLOGIC: Cranial nerves II-XII intact, alert and oriented x 3, no gross motor deficits EXTREMITIES: no edema, cyanosis or clubbing Right dorsalis pedis feeble left dorsalis pedis normal right and left posterior tibialis equal and symmetrical Objective Data Vital Signs Vital Signs: Vital Signs - 24 hr
[2021-10-25 17:37] LABS: Glucose Point of Care 129 mg/dl (65-105)
[2021-10-25 19:56] LABS: Glucose Point of Care 161 mg/dl (65-105)
[2021-10-25] MEDS: ROSUVASTATIN 10 MG TABLET 40 MG PO (21:36)
[2021-10-25] MEDS: ASPIRIN 81 MG ENTERIC TABLET PO (21:37)
[2021-10-25] MEDS: OMEGA 3 POLYUNSAT FATTY ACIDS 1 GM CAP PO (21:38)
[2021-10-25] MEDS: lisinopriL 10 MG TABLET PO (21:38)
[2021-10-25] MEDS: LORATADINE 10 MG TABLET PO (21:39)
[2021-10-25] MEDS: FLUTICASONE PROPIONATE 0.05% NA SPR 16 GM BTL (*BKC) 1 SPRAY NASAL (21:39)
[2021-10-25] MEDS: DOCUSATE SODIUM 100 MG CAPSULE PO (22:31)
[2021-10-26] VITALS (9 sets, daily range): BP systolic 123–131; BP diastolic 52–70; PULSE 52–72; RESP 12–20; TEMP 36–36.6; O2SAT 70–99
[2021-10-26] MEDS: ACETAMINOPHEN 500 MG TABLET 1000 MG PO ×2 (05:14→12:16)
[2021-10-26] MEDS: ENOXAPARIN 100 MG/ML SYRINGE SUB-Q (05:15)
[2021-10-26] MEDS: ENOXAPARIN 30 MG/0.3 ML SYRINGE SUB-Q (05:15)
[2021-10-26 05:46] LABS: Basophils Percent Auto 0.2 % (0.2-1.2); Eosinophils Absolute Auto 0.1 K/mm3 (0-0.3); Hematocrit 43.5 % (42.0-52.0); Hemoglobin 14.4 g/dL (14.0-18.0); Immature Granulocyte Absolute 0.04 K/mm3 (0.00-0.031); Immature Granulocyte Percent A 0.5 % (0-0.5); Lymphocytes Absolute Auto 3.84 K/mm3 (0.9-3.2); Lymphocytes Percent Auto 46.8 % (18.3-44.2); Mean Corpuscular HGB Conc 33.1 g/dl (32-36); Mean Corpuscular Hemoglobin 28.9 pg (26-34); Mean Corpuscular Volume 87.3 fl (80-100); Mean Platelet Volume 9.2 fl (7.4-10.4); Monocytes Absolute Auto 0.8 K/mm3 (0.1-0.6); Neutrophils Absolute Auto 3.4 K/mm3 (1.3-6.7); Neutrophils Percent Auto 41.5 % (45.5-73.1); Platelet Count Result 219 k/mm3 (150-375); Red Blood Count 4.98 M/mm3 (4.6-6.20); Red Cell Distribution Width 13.4 % (11.5-14.5); White Blood Count 8.2 K/mm3 (4.5-10.0)
[2021-10-26 05:49] LABS: Anion Gap 6 mmol/L (8-16); Blood Urea Nitrogen 21 mg/dL (9-20); Calcium 8.6 mg/dL (8.4-10.2); Carbon Dioxide 27 mmol/L (22-30); Chloride 101 mmol/L (98-107); Estimated CRCL calculation 104 ml/min; Estimated Glomerular Filt Rate > 60; Glucose 145 mg/dL (65-110); Magnesium 2.1 mg/dL (1.6-2.3); Potassium 3.5 mmol/L (3.4-5.0); Sodium 134 mmol/L (137-145)
[2021-10-26 08:00] LABS: Glucose Point of Care 154 mg/dl (65-105)
--- NOTE | 2021-10-26 10:00 | PC.NURSE ---
pt arrived to [facility] from ultrasound from [place].
[2021-10-26] MEDS: ASCORBIC ACID 250 MG TABLET PO (10:18)
[2021-10-26] MEDS: VITAMIN E 400 UNIT CAPSULE PO (10:18)
[2021-10-26] MEDS: CHOLECALCIFEROL 1,000 UNITS TABLET 1000 UNITS PO (10:18)
[2021-10-26] MEDS: carvediloL 6.25 MG TABLET PO (10:18)
[2021-10-26] MEDS: hydroCHLOROthiazide 25 MG TABLET PO (10:18)
[2021-10-26] MEDS: DOCUSATE SODIUM 100 MG CAPSULE PO (10:30)
--- NOTE | 2021-10-26 11:44 | PM.DS ---
DS: Admitting Diagnosis Discharge Date 10/26/21 Admitting Diagnosis Chest pain DS: Discharge Diagnosis Discharge Diagnosis (1) Chest pain: Code(s): R07.9 - Chest pain, unspecified Status: Acute (2) Diabetes mellitus: Code(s): E11.9 - Type 2 diabetes mellitus without complications Status: Acute (3) Hypertension: Code(s): I10 - Essential (primary) hypertension Status: Acute (4) Hyperlipidemia: Code(s): E78.5 - Hyperlipidemia, unspecified Status: Acute (5) EVELYNE (obstructive sleep apnea): Code(s): G47.33 - Obstructive sleep apnea (adult) (pediatric) Status: Acute (6) Morbid obesity with BMI of 40.0-44.9, adult: Code(s): E66.01 - Morbid (severe) obesity due to excess calories; Z68.41 - Body mass index [BMI] 40.0-44.9, adult Status: Acute DS: Summary Hospital Course Reason for hospitalization: 61yo male with DM, HTN and HLD here for atypical CP. Please see H&P for details Hospital Course: Patient presents with chest pain with atypical features. No prior history of coronary disease. No recent stress test. EKG showed ST T wave changes in the inferior leads with normal sinus rhythm with first-degree AV block. Initial troponin was 0.044 however subsequent levels were negative. Echocardiogram showed EF of 65-70% normal diastolic function. Chest x-ray was clear. He had a normal CBC but with differential did show predominance of mild elevation of the lymphocytes. He may have had a viral illness. PT, PTT and D-dimer all were normal. Cholesterol panel noted. A1c was 6.9. COVID test was negative. Cardiology was consulted. Patient was brought to the [employer] business representative which showed right coronary dominant circulation with no angiographic abnormalities. There was concerned that he may have decreased peripheral pulses in the lower extremities. Arterial Doppler however shows normal ABIs and TBIs bilaterally. Patient overall did well he was discharged home on 10/26/2021. Healthy lifestyle choices were encouraged. Status at Discharge Cognitive/behavioral status at discharge: Stable Time Spent with Patient Time attestation: Total time spent providing and/or coordinating discharge services: 34 minutes Time spent: Greater than 30 minutes Exam Narrative: AF 96.8 130/61 67 12 96% ra Gen - NARD Chest - CTA bilaterally, nml RR CV - RRR S1/S2; Tele showing no acute dysrhythmias Abd - Soft, NT/ND, Positive BS Ext - No pedal edema Psych - Nml mood and affect Skin - Warm and dry DS: Data Data Completed and Pending Labs on day of discharge: Labs from last 24 hours 10/26/21 10/26/21 10/26/21 07:53 04:59 04:59 WBC 8.2 RBC 4.98 Hgb 14.4 Hct 43.5 MCV 87.3 MCH 28.9 MCHC 33.1 RDW 13.4 Plt Count 219 MPV 9.2 Immature Gran % (Auto) 0.5 Neut % (Auto) 41.5 L Lymph % (Auto) 46.8 H Jennings % (Auto) 10.0 H Eos % (Auto) 1.0 Baso % (Auto) 0.2 Lymph # (Auto) 3.84 H Jennings # (Auto) 0.8 H Eos # (Auto) 0.1 Baso # (Auto) 0.0 Abs Immat Gran (auto) 0.04 H Absolute Neuts (auto) 3.4 Absolute Nucleated RBC 0.0 Nucleated RBC % 0.0 Sodium 134 L Potassium 3.5 Chloride 101 Carbon Dioxide 27 Anion Gap 6 L BUN 21 H Creatinine 0.90 Estim Creat Clear Calc 104 Estimated GFR > 60 Glucose 145 H POC Capillary Glucose 154 H Calcium 8.6 Magnesium 2.1 10/25/21 10/25/21 10/25/21 19:50 17:11 12:15 WBC RBC Hgb Hct MCV MCH MCHC RDW Plt Count MPV Immature Gran % (Auto) Neut % (Auto) Lymph % (Auto) Jennings % (Auto) Eos % (Auto) Baso % (Auto) Lymph # (Auto) Jennings # (Auto) Eos # (Auto) Baso # (Auto) Abs Immat Gran (auto) Absolute Neuts (auto) Absolute Nucleated RBC Nucleated RBC % Sodium Potassium Chloride Carbon Dioxide Anion Gap BUN Creatinine
[2021-10-26 12:40] LABS: Glucose Point of Care 191 mg/dl (65-105)
[2021-10-26] MEDS: MULTIVITAMINS /C LUTEIN (CENTRUM SILVER) TABLET *BKC 1 TAB PO (12:44)
--- NOTE | 2021-10-26 12:57 | PC.NURSE ---
case management here speaking with pt
== END 2021-10-26 13:44 | disposition home or self-care (01) | DRG 287 ==
LOC: ANHED 10-23 00:55 → ANHIMU 10-23 02:17 → ANHCPC 10-26 10:08 → ANHIMU 10-27 12:22
PROVIDERS: Internal Medicine; Specialist; Admitting Provider Internal Medicine; Emergency Provider Emergency Medicine; PCP Physician Assistant; Visit Provider Internal Medicine
PROC: 4A023N7 Measurement of Cardiac Sampling and Pressure, Left Heart, Percutaneous Approach (ICD-10-PCS; CPT 93452; principal; 2021-10-25 10:00)
PROC: 4A023N7 Measurement of Cardiac Sampling and Pressure, Left Heart, Percutaneous Approach (ICD-10-PCS; 2021-10-25 10:00)
DX: R07.89 Other chest pain (principal); Z68.41 Body mass index [BMI] 40.0-44.9, adult; E66.01 Morbid (severe) obesity due to excess calories; I10 Essential (primary) hypertension; E78.5 Hyperlipidemia, unspecified; E11.9 Type 2 diabetes mellitus without complications; G47.33 Obstructive sleep apnea (adult) (pediatric); B97.89 Other viral agents as the cause of diseases classified elsewhere; Z20.822 Contact with and (suspected) exposure to COVID-19; Z79.84 Long term (current) use of oral hypoglycemic drugs
CPT/HCPCS: 36415; 71046; 80048; 80053; 80061; 82948; 83036; 83690; 83735; 84484; 85025; 85380; 85610; 85730; 93005; 93306; 93458; 93923; 96372; 96374; 99285; A9270; C1760; C1887; C1894; C9803; G0269; G0378; J1644; J1650; J1815; J2250; J2270; J2310; J3010; J7030; J7040; U0003; U0005

== ENCOUNTER 2023-06-25 01:15 | Day surgery (SDC) | payer BC, OTHER, SELFPAY ==
[2023-06-11 11:11] VITALS: BMI 30.4
--- NOTE | 2023-06-22 12:22 | SUR.PREOP ---
Patient called regarding upcoming procedure. Reviewed preop instructions, appointment times, and procedure prep.
--- NOTE | 2023-06-22 14:34 | PM.HPGS ---
History of Present Illness History of Present Illness Consent: Risks, benefits, and alternatives have been discussed and questions answered. Patient agrees to proceed with procedure. Chief complaint: fam hx colon ca Narrative: Quoc Galvez is a 62 year old male Referred for colon cancer screening. He has family history of colon cancer. His brother had colon cancer. Review of Systems Review of Systems: All systems reviewed & are unremarkable except as noted in HPI and below PMFSH Past Medical History Medical History Diabetes mellitus Hyperlipidemia Hypertension EVELYNE (obstructive sleep apnea) Family History Family History Sibling History of blood clots Colon cancer Grandparent Cerebrovascular accident Father Colon cancer Hypertension Mother Congestive heart failure Social History Social History Smoking status: Never smoker Second hand tobacco smoke exposure: Yes Alcohol intake: current Drinks per week: 2 Alcohol use details: DRINKS/BEER/WINE Substance use: never Substance use type: does not use Living arrangements: with family Spiritual care concerns: No Meds Home Medications and Allergies Home Medications Medication Instructions Recorded Confirmed Type acetaminophen 500 mg tablet 1,000 mg PO BID PRN Pain 10/23/21 06/25/23 History aspirin 81 mg tablet,delayed 81 mg PO HS 10/23/21 06/25/23 History release coenzyme Q10 200 mg capsule (Co 200 mg PO BID 10/23/21 06/25/23 History Q-10) flaxseed oil 1,000 mg capsule 1,200 mg PO DAILY 10/23/21 06/25/23 History fluticasone propionate 50 1 spray intranasal 10/23/21 06/25/23 History mcg/actuation nasal spray,suspension (Flonase Allergy Relief) hydrochlorothiazide 25 mg tablet 25 mg PO DAILY 10/23/21 06/25/23 History krill oil 1,000 mg-om3 130 mg-dha 1 cap PO HS 10/23/21 06/25/23 History 40 mg-epa 80 [id number]-astax cap (Krill Oil ([place] 3 and 6)) lisinopril 10 mg tablet 10 mg PO HS 10/23/21 06/25/23 History loratadine 10 mg tablet 10 mg PO 10/23/21 06/25/23 History metformin 500 mg tablet 1,000 mg PO HS 10/23/21 06/25/23 History naproxen 250 mg tablet 250 mg PO DAILY Pain 10/23/21 06/25/23 History rosuvastatin 40 mg tablet 40 mg PO HS 10/23/21 06/25/23 History vitamin A 2,400 mcg capsule 2,400 mcg PO DAILY 10/23/21 06/25/23 History vitamin E 600 unit capsule 600 unit PO DAILY 10/23/21 06/25/23 History [id number](with boron) 1 cap PO DAILY 06/11/23 06/25/23 History arginine (L-arginine) 500 mg 500 mg PO DAILY 06/11/23 06/25/23 History capsule ascorbic acid (vitamin C) 500 mg 1,000 mg PO BID 06/11/23 06/25/23 History tablet astaxanthin 4 mg capsule 4 mg PO DAILY 06/11/23 06/25/23 History cholecalciferol (vitamin D3) 10 10 mcg PO DAILY 06/11/23 06/25/23 History mcg (400 unit) tablet (Vitamin D3) diphenhydramine HCl 25 mg capsule 25 mg PO HS PRN Insomnia 06/11/23 06/25/23 History (Benadryl) docusate sodium 100 mg capsule 100 mg PO DAILY 06/11/23 06/25/23 History (Dulcolax Stool Softener (docusate)) ferrous sulfate 325 mg (65 mg 325 mg PO 2XW 06/11/23 06/25/23 History iron) tablet (iron) levocarnitine 500 mg capsule 500 mg PO DAILY 06/11/23 06/25/23 History (L-Carnitine) magnesium oxide 400 mg PO DAILY 06/11/23 06/25/23 History melatonin 10 mg tablet 10 mg PO HS PRN Insomnia 06/11/23 06/25/23 History multivitamin (Daily Multi-Vitamin 1 tablet PO DAILY 06/11/23 06/25/23 History tablet) potassium 99 mg tablet 99 mg PO DAILY 06/11/23 06/25/23 History saw palmetto 450 mg capsule 450 mg PO DAILY 06/11/23 06/25/23 History turmeric root-bg root ext 1 cap PO DAILY 06/11/23 06/25/23 History vitamin A-vitamin C-vit E-min 1 tablet PO DAILY 06/11/23 06/25/23 History tablet vitamin B complex 1 cap PO DAILY 06/11/23
[2023-06-25 08:29] VITALS: BP 135/67; PULSE 70; RESP 18; TEMP 36.4; O2SAT 97
[2023-06-25] MEDS: LACTATED RINGERS 1,000 ML 150 ML IV CONT (08:45)
[2023-06-25 08:49] LABS: Glucose Point of Care 138 mg/dl (65-105)
--- NOTE | 2023-06-25 09:17 | WPDANESEPPF ---
Anes - Initial Pre Proc Eval Procedure: Operation Date: 06/25/23 09:30 Proposed Procedures p Colonoscopy - Jackson Joseph MD Date/Time: 06/25/23 09:17 Surgeon: Jackson Joseph MD Pre Op Diagnosis: fam hx colon ca Patient Data Age: 62 Gender: M Height: 2.1 m Weight: 130.2 kg Last Vital Signs Temp 97.6 F 06/25/23 08:29 Pulse 70 06/25/23 08:29 Resp 18 06/25/23 08:29 BP 135/67 06/25/23 08:29 Pulse Ox 97 06/25/23 08:29 O2 Del Method Room Air 06/25/23 08:29 Allergies Allergy/AdvReac Type Severity Reaction Status Date / Time poison geovani extract Allergy Severe Rash Verified 06/25/23 08:27 poison oak extract Allergy Severe Rash Verified 06/25/23 08:27 poison sumac extract Allergy Severe Rash Verified 06/25/23 08:27 nicotine Allergy Intermediate Swelling Verified 06/25/23 08:27 of Lip/Tongue/Throat tetracycline AdvReac Nausea and Verified 06/25/23 08:27 Vomiting Home Medications Medication Instructions Recorded Confirmed Type acetaminophen 500 mg tablet 1,000 mg PO BID PRN Pain 10/23/21 06/25/23 History aspirin 81 mg tablet,delayed 81 mg PO HS 10/23/21 06/25/23 History release coenzyme Q10 200 mg capsule (Co 200 mg PO BID 10/23/21 06/25/23 History Q-10) flaxseed oil 1,000 mg capsule 1,200 mg PO DAILY 10/23/21 06/25/23 History fluticasone propionate 50 1 spray intranasal HS 10/23/21 06/25/23 History mcg/actuation nasal spray,suspension (Flonase Allergy Relief) hydrochlorothiazide 25 mg tablet 25 mg PO DAILY 10/23/21 06/25/23 History krill oil 1,000 mg-om3 130 mg-dha 1 cap PO HS 10/23/21 06/25/23 History 40 mg-epa 80 [id number]-astax cap (Krill Oil ([place] 3 and 6)) lisinopril 10 mg tablet 10 mg PO HS 10/23/21 06/25/23 History loratadine 10 mg tablet 10 mg PO HS 10/23/21 06/25/23 History metformin 500 mg tablet 1,000 mg PO HS 10/23/21 06/25/23 History naproxen 250 mg tablet 250 mg PO DAILY Pain 10/23/21 06/25/23 History rosuvastatin 40 mg tablet 40 mg PO HS 10/23/21 06/25/23 History vitamin A 2,400 mcg capsule 2,400 mcg PO DAILY 10/23/21 06/25/23 History vitamin E 600 unit capsule 600 unit PO DAILY 10/23/21 06/25/23 History [id number]-[id number](with boron) 1 cap PO DAILY 06/11/23 06/25/23 History arginine (L-arginine) 500 mg 500 mg PO DAILY 06/11/23 06/25/23 History capsule ascorbic acid (vitamin C) 500 mg 1,000 mg PO BID 06/11/23 06/25/23 History tablet astaxanthin 4 mg capsule 4 mg PO DAILY 06/11/23 06/25/23 History cholecalciferol (vitamin D3) 10 10 mcg PO DAILY 06/11/23 06/25/23 History mcg (400 unit) tablet (Vitamin D3) diphenhydramine HCl 25 mg capsule 25 mg PO HS PRN Insomnia 06/11/23 06/25/23 History (Benadryl) docusate sodium 100 mg capsule 100 mg PO DAILY 06/11/23 06/25/23 History (Dulcolax Stool Softener (docusate)) ferrous sulfate 325 mg (65 mg 325 mg PO 2XW 06/11/23 06/25/23 History iron) tablet (iron) levocarnitine 500 mg capsule 500 mg PO DAILY 06/11/23 06/25/23 History (L-Carnitine) magnesium oxide 400 mg PO DAILY 06/11/23 06/25/23 History melatonin 10 mg tablet 10 mg PO HS PRN Insomnia 06/11/23 06/25/23 History multivitamin (Daily Multi-Vitamin 1 tablet PO DAILY 06/11/23 06/25/23 History tablet) potassium 99 mg tablet 99 mg PO DAILY 06/11/23 06/25/23 History saw palmetto 450 mg capsule 450 mg PO DAILY 06/11/23 06/25/23 History turmeric root-bg root ext 1 cap PO DAILY 06/11/23 06/25/23 History vitamin A-vitamin C-vit E-min 1 tablet PO DAILY 06/11/23 06/25/23 History tablet vitamin B complex 1 cap PO DAILY 06/11/23 06/25/23 History vitamin E 670 mg (1,000 unit) 670 mg PO HS 06/11/23 06/25/23 History capsule vitamin K2 90 mcg capsule 90 mcg PO QPM 06/11/23 06/25/23 History zinc 50 mg capsule 50 mg PO DAILY 06/11/23 06/25/23 History Probiotic Digestive Care 1 tab-cap PO DAILY 06/13/23 06/25/23 History Laboratory Tests 06/25/23 08:43 POC Capillary Glucose 138 H mg/dl (65-105)
[2023-06-25 09:55] VITALS: BP 97/47; PULSE 68; RESP 20; O2SAT 98
[2023-06-25 10:05] VITALS: BP 125/74; PULSE 60; RESP 20; O2SAT 96
[2023-06-25 10:15] VITALS: BP 146/89; PULSE 58; RESP 20; O2SAT 97
== END 2023-06-25 10:35 | disposition home or self-care (01) ==
PROVIDERS: PCP Physician Assistant; Visit Provider Internal Medicine Gastroenterology
PROC: 0DJD8ZZ Inspection of Lower Intestinal Tract, Via Natural or Artificial Opening Endoscopic (ICD-10-PCS; CPT 45378; principal; 2023-06-25 09:30)
DX: Z12.11 Encounter for screening for malignant neoplasm of colon (principal); K57.30 Diverticulosis of large intestine without perforation or abscess without bleeding; I10 Essential (primary) hypertension; E78.5 Hyperlipidemia, unspecified; E11.9 Type 2 diabetes mellitus without complications; G47.33 Obstructive sleep apnea (adult) (pediatric); Z79.82 Long term (current) use of aspirin; Z79.84 Long term (current) use of oral hypoglycemic drugs; Z79.1 Long term (current) use of non-steroidal anti-inflammatories (NSAID); Z80.0 Family history of malignant neoplasm of digestive organs; Z82.49 Family history of ischemic heart disease and other diseases of the circulatory system
CPT/HCPCS: 45378; 82948; J2704; J7120